=== PATIENT | male | born 1980 | race Two or more races ===

== ENCOUNTER 2024-11-19 02:33 | Emergency (ER) | payer OTHER ==
[~2024-11-19] VITALS: Ht 185.4 cm; Wt 91.5 kg
[2024-11-19 03:17] VITALS: BP 146/99; PULSE 82; RESP 16; TEMP 98; O2SAT 97
--- NOTE | 2024-11-19 03:24 | ED.PDOC ---
Back pain HPI HPI Comments Pt C/O left ankle pain. Pt reports he was walking down the stairs when he heard a pop and his ankle has been hurting since, Pt ambulated into and out of triage with even steady gait. Denies numbness, weakness or any other known injury. Chief Complaint: Lower Extremity Time Seen by MD: 02:38 Reviewed Notes: Nurses Notes, Medications, Allergies Allergies: Coded Allergies: Ketorolac Tromethamine (Verified Allergy, Intermediate, 11/19/24) pt had shot previously and caused leg that was injected to swell and become numb Vancomycin (Verified Allergy, Unknown, 11/19/24) Home Meds Active Scripts Ibuprofen (Ibuprofen) 800 Mg Tab, 1 TAB PO TID PRN for 7 Days, #21 TAB Prov:EUGENIO ENNIS BACK FACER 11/19/24 Information Source: Patient Mode of Arrival: Ambulatory Past Medical History PAST MEDICAL HISTORY: Denies Surgical History: Denies all surgeries Family History Family History: Reviewed,noncontributory to illness Social History Smoker: Non-Smoker Alcohol: Denies ETOH Use Drugs: Denies Drug Use Constitutional: denies: chills, diaphoresis, fatigue, fever, malaise, sweats, weakness, others EENTM: denies: blurred vision, double vision, ear bleeding, ear discharge, ear drainage, ear pain, ear ringing, eye pain, eye redness, hearing loss, mouth pain, mouth swelling, nasal discharge, nose bleeding, nose congestion, nose pain, photophobia, tearing, throat pain, throat swelling, voice changes, others Respiratory: denies: cough, hemoptysis, orthopnea, SOB at rest, shortness of breath, SOB with excertion, stridor, wheezing, others Cardiovascular: denies: chest pain, dizzy spells, diaphoresis, Dyspnea on exertion, edema, irregular heart beat, left arm pain, lightheadedness, palpitations, PND, syncope, others Gastrointestinal: denies: abdomen distended, abdominal pain, blood streaked bowels, constipated, diarrhea, dysphagia, difficulty swallowing, hematemesis, melena, nausea, poor appetite, poor fluid intake, rectal bleeding, rectal pain, vomiting, others Genitourinary: denies: burning, dysuria, flank pain, frequency, hematuria, inco ntinence, penile discharge, penile sore, pain, testicle pain, testicle swelling, urgency, others Neurological: denies: dizziness, fainting, headache, left sided numbness, left sided weakness, numbness, paresthesia, pre-existing deficit, right sided numbness, right sided weakness, seizure, speech problems, tingling, tremors, weakness, others Musculoskeletal: reports: others (Left Ankle pain and swelling); denies: back pain, gout, joint pain, joint swelling, muscle pain, muscle stiffness, neck pain Integumetry: denies: bruises, change in color, change in hair/nails, dryness, laceration, lesions, lumps, rash, wounds, others Allergic/Immunocompromised: denies: Difficulty Healing, Frequent Infections, Hives, Itching, others Hematologic/Lymphatic: denies: anemia, blood clots, easy bleeding, easy bruising, swollen glands, others Endocrine: denies: excessive hunger, excessive sweating, excessive thirst, excessive urination, flushing, intolerance to cold, intolerance to heat, unexplained weight gain, unexplained weight loss, others Psychiatric: denies: anxiety, bipolar disorder, depression, hopeless, panic disorder, schizophrenia, sleepless, suicidal, others Physical Exam General Appearance: No Apparent Distress, Normal HEENT: Pharynx Normal Neck: Full Range of Motion, Non-Tender Respiratory: Lungs Clear, No Respiratory Distress, Normal Breath Sounds Cardiovascular: No Murmur, Normal Peripheral Pulses, Regular Rate/Rhythm Breast Exam: Deferred Gastrointestinal: Non Tender, Soft Genitalia: Deferred Pelvic: Deferred Rectal: Deferred Extremities: Normal capillary refill, Normal inspection, Normal range of motion, Non-tender, No pedal edema Musculoskeletal : Location: Left Extremity Location: Ankle (Moderate tenderness and edema lateral malleolus. No Crepitus or bony prominence. Sensory and motion intact positive pedal pulse) Apperance: Normal Neurologic: Alert, peoplesoft analyst II-XII nml as Tested, No Motor Deficits, Normal Affect, Normal Mood, No Sensory Deficits Cerebellar Function: Normal Reflexes: Normal Skin: Dry, Normal Color, Warm Lymphatic: No Adenopathy Was a procedure done? Was a procedure done?: No Back Pain Differential Dx Differential Diagnosis: Fracture, Musculoskeletal Pain X-Ray, Labs, Meds, VS Vital Signs Date Time Temp Pulse Resp B/P (MAP) Pulse Ox O2 Delivery O2 Flow Rate FiO2 11/19/24 03:17 98.0 82 16 146/99 (115) 97 98.0 11/19/24 03:17 82 16 97 Room Air 11/19/24 02:46 98.0 82 16 146/99 (115) 97 Current Medications Medications (Trade) Dose Ordered Sig/Bebe Route Start Time Stop Time Status Last Admin Ketorolac Tromethamine (Toradol Injection) 60 mg ONCE ONCE IM 11/19/24 03:30 11/19/24 03:31 DC 11/19/24 03:29 X-Ray, Labs, Meds, VS Comment Left ankle x-ray negative for acute findings or osseous lesions. Lateral malleolus ankle sprain. Patient placed in a splint. Crutches provided. Advised rice. Ibuprofen 800 mg script to pharmacy. Recommend 3 days off or light duty 3 days. Advised to follow up with employee health, ER return precautions given patient indicates understanding agrees with discharge plan of care. Time of 1ST Reevaluation: 03:48 Reevaluation 1ST: Improved Patient Education/Counseling: Diagnosis, Treatment, Prognosis, Need For Follow Up Family Education/Counseling: No Family Present Departure 1 Departure Time of Disposition: 03:46 Impression: Primary Impression: Left ankle sprain Qualified Codes: S93.402A - Sprain of unspecified ligament of left ankle, initial encounter Disposition: HOME / SELF CARE / HOMELESS Condition: Stable e-Prescriptions Ibuprofen (Ibuprofen) 800 Mg Tab 1 TAB PO TID PRN for 7 Days, #21 TAB Prov: EUGENIO ENNIS 11/19/24 Discharged With: Self Critical Care Note Critical Care Time?: No Stability Stability form required: No EUGENIO ENNIS Nov 19, 2024 03:23
[2024-11-19] MEDS: KETOROLAC TROMETH 60MG/2ML VIAL IM ONE (03:29)
--- NOTE | 2024-11-19 03:36 | DVH ---
CLINICAL INDICATION: Injury/pain/swelling TECHNIQUE: 3 radiographic views of the left ankle were obtained. Comparison: None FINDINGS/IMPRESSION: There is no evidence for acute fracture or dislocation. Overall bone mineralization is within normal limits. The joint spaces are preserved. There is mild soft tissue swelling.
[2024-11-19] MEDS ORDERED: IBUP-1456 PO (03:48)
== END 2024-11-19 04:32 | disposition home or self-care (01) ==
LOC: ER 02:33
DX: S93.402A Sprain of unspecified ligament of left ankle, initial encounter (principal); Z88.1 Allergy status to other antibiotic agents; X58.XXXA Exposure to other specified factors, initial encounter; Y93.01 Activity, walking, marching and hiking; Y92.89 Other specified places as the place of occurrence of the external cause; Y99.8 Other external cause status
CPT/HCPCS: 29515; 73610; 96372; 99283; J1885